=== PATIENT | female | born 1960 | race Caucasian/White ===

== ENCOUNTER 2024-09-18 10:00 | Emergency (ER) | payer OTHER, SELFPAY ==
--- NOTE | 2024-09-18 10:05 | EDRN ---
Ice applied to head at triage.
[2024-09-18 10:14] VITALS: BP 112/71
--- NOTE | 2024-09-18 11:30 | ED.GENMED ---
History of Present Illness
General
Chief Complaint: Head Injury
Source: patient
Exam Limitations: none
Time Seen by Provider: 09/18/24 10:43
Nursing documentation reviewed up to this point in time: agreed with
History of Present Illness
History of Present Illness:
This is a 64-year-old female with a past medical history of Parkinson's disease who presents emergency department today with concerns of posterior headache and laceration following fall. Patient reports that she has unsteady gait at times with her
Parkinson's and was walking into her bedroom when she lost her balance and fell back, hit her head on a dresser and falling to the ground. Patient was able to get up on her own without difficulty. She did not lose consciousness. She does not have
pain or back. She notes a dull headache in the back of her head. She notes has visual loss, dizziness, no lightheadedness. She has no weakness, no paresthesias in upper or lower extremities. Patient had no pain in her upper or lower extremities,
no abdominal pain, chest pain, no shortness breath. Patient does not take any blood thinners. Patient lives at home with her .
Past History
Past History
ED Past Medical History: Other (parkinsons)
Review of Systems
Review of Systems
All Other Systems: ROS reviewed and negative except as documented in HPI and ROS
Phy Exam
Physical Exam
Physical Exam:
General: Patient is well appearing and in no acute distress; non-toxic
Skin: Small 2 cm laceration noted to the posterior scalp
Head: See above. Palpable hematomas of the scalp, no tenderness palpation of the facial bones. TMJ joints intact bilaterally.
Eyes: Sclera non-icteric. EOMs intact.
Cardiac: Regular rate, no tenderness to palpation of the external chest wall
Peripheral Vascular: No lower extremity swelling or edema
Pulm: Normal respiratory effort
Abdomen: No abdominal tenderness to palpation
Musculoskeletal: No tenderness palpation of the cervical spine, no paraspinal redness, no upper thoracic tenderness
Neuro: CN II-XII intact, no focal neurologic deficits.
Psychiatric: Appropriate mood and affect.
Course
Orders/Labs/Results
Orders:
Orders
09/18/24 11:11
CT Head W/o Iv Contrast Urgent
Comment:
Reason For Exam: posterior headache, head trauma fall
Vital Signs
Initial and Last Documented VS:
Initial Vital Signs
Temp Pulse Resp BP Pulse Ox
98.1 F 85 18 112/71 98
09/18/24 10:14 09/18/24 10:14 09/18/24 10:14 09/18/24 10:14 09/18/24 10:14
Last Documented Vital Signs
Temp Pulse Resp BP Pulse Ox
98.1 F 85 17 112/71 98
09/18/24 10:14 09/18/24 10:14 09/18/24 12:00 09/18/24 10:14 09/18/24 10:14
Procedures
Laceration Closure
Posterior:
Status of Wound: clean
Size of Wound in cm: 2
Description of Wound Edges: sharp
Preparation: cleaned with saline
Anesthesia: 1% Lidocaine with epi
Revision/Debridement: routine- no revision
Wound exploration: explored to base- no FB
Type of Closure: single layer closure
Skin Closure Material: skin ronaldo
MDM/Problems Addressed
Differential Diagnosis Includes:
Tension headache, concussion, laceration, subdural hematoma epidural hematoma
MDM/Problems Addressed:
64-year-old female with past medical history of Parkinsons presents to the emergency department today with concerns of a fall. On exam she does have a 2 cm laceration noted to the posterior scalp. This was repaired with 2 ronaldo. Wound care and
return precautions discussed. Patient was CAT scan which was negative for any acute intracranial abnormality. She is no tender patient of the cervical spine. Patient stable for discharge. Patient did ambulate and demonstrate a steady gait with
nursing. Patient will be discharged to the care of her .
Chronic conditions affecting care:
parkinson's disease
*Critical Care Note
Total Time (30-74mins, 75-104mins- exclusive of procedures): Not Applicable
ED Attending Note
-
Portions of this chart may have been created with voice recognition software.� Occasional wrong word or��sound alike� substitutions may have occurred due to the inherent limitations of voice recognition software.
Discharge Plan
Departure
Patient Disposition: Home (Routine Discharge)
Date of Disposition: 09/18/24
Time of Disposition: 13:23
Patient with high blood pressure during this ER visit?: No
Condition: Good
Discharge Problem:
Head trauma, Laceration of scalp
Instructions: Head Injury in Adults (DC), Laceration Repair With Ronaldo (DC)
Prescriptions:
No Action
hydrocodone-acetaminophen [[place]] 1 EACH tablet
1 ea PO Q4HPRN PRN (Reason: severe pain) Qty: 12 0RF
Referrals:
Trae Orr MD [Family Provider] -
Activity Restrictions/Additional Instructions:
Your CAT scan of the head was normal and did not show any evidence of any acute intracranial abnormality.
2 ronaldo were placed in the better scalp. These can be removed by a primary care provider, urgent care, or you can return emergency department to have them removed.
Please follow-up with your primary care.
PLEASE RETURN EMERGENCY DEPARTMENT IF YOU DEVELOP CHEST PAIN, SHORTNESS OF BREATH, HEADACHES, BLURRY VISION OR DOUBLE VISION, SYNCOPAL EPISODES, INTRACTABLE NAUSEA OR VOMITING, SEIZURE-LIKE ACTIVITY, CONFUSION, WEAKNESS IN ONE-SIDED BODY, OR ANY
OTHER SYMPTOMS WORRISOME TO YOU.
Interventions
Interventions:
*Risk Screen - Suicide Last Done: 09/18/24 10:14
*General Assessment Last Done: 09/18/24 11:11
*Neglect/Abuse Screening Last Done: 09/18/24 13:32
ED- Fall Risk Assessment Last Done: 09/18/24 11:12
*Nursing Disposition Last Done: 09/18/24 13:54
ED- Neurological Assessment Last Done: 09/18/24 11:11
ED-Skin Assessment Last Done: 09/18/24 11:11
Discharge Date and Time
Discharge Date/Time: 09/18/24 13:54
Print Language: ITALIAN
== END 2024-09-18 13:54 | disposition home or self-care (01) ==
LOC: EMR 10:00
PROVIDERS: EMERGENCY PHYSICIAN Emergency Medicine; FAMILY PHYSICIAN Internal Medicine
DX: S01.01XA Laceration without foreign body of scalp, initial encounter (principal); W19.XXXA Unspecified fall, initial encounter; G20.A1 Parkinson's disease without dyskinesia, without mention of fluctuations
CPT/HCPCS: 12001; 99284; 70450

== ENCOUNTER → 2024-12-18 13:35 | Outpatient (REF) | payer OTHER, SELFPAY | LOC: WDC 13:35 | PROVIDERS: ATTENDING PHYSICIAN Obstetrics & Gynecology; FAMILY PHYSICIAN Internal Medicine | DX: Z12.31 Encounter for screening mammogram for malignant neoplasm of breast (principal) | CPT/HCPCS: 77063; 77067 ==

== ENCOUNTER 2025-02-14 06:24 | Day surgery (SDC) | payer OTHER, SELFPAY | END 2025-02-14 09:56 | disposition home or self-care (01) | LOC: GI 06:24 | PROVIDERS: ATTENDING PHYSICIAN Student in an Organized Health Care Education/Training Program | DX: Z12.11 Encounter for screening for malignant neoplasm of colon (principal); K63.89 Other specified diseases of intestine; K63.5 Polyp of colon; K57.30 Diverticulosis of large intestine without perforation or abscess without bleeding; K64.0 First degree hemorrhoids; K64.4 Residual hemorrhoidal skin tags; Z86.0100 Personal history of colon polyps, unspecified | CPT/HCPCS: 45385; 45380; 88305 ==